=== PATIENT | female | born 1965 | race Caucasian/White ===

== ENCOUNTER → 2023-02-24 13:52 | Outpatient (REF) | payer OTHER, SELFPAY | LOC: WOUND 13:52 | PROVIDERS: ATTENDING PHYSICIAN Surgery; REFERRING PHYSICIAN Internal Medicine | DX: L97.822 Non-pressure chronic ulcer of other part of left lower leg with fat layer exposed (principal); L93.0 Discoid lupus erythematosus; M35.00 Sjogren syndrome, unspecified; Z79.52 Long term (current) use of systemic steroids; Z79.60 Long term (current) use of unspecified immunomodulators and immunosuppressants | CPT/HCPCS: 11042; 11043; 99214 ==

== ENCOUNTER → 2023-04-07 08:43 | Outpatient (REF) | payer OTHER, SELFPAY | LOC: WOUND 08:43 | PROVIDERS: ATTENDING PHYSICIAN Surgery; REFERRING PHYSICIAN Internal Medicine | DX: L97.822 Non-pressure chronic ulcer of other part of left lower leg with fat layer exposed (principal); S81.811S Laceration without foreign body, right lower leg, sequela; L03.115 Cellulitis of right lower limb; L93.0 Discoid lupus erythematosus; Z79.60 Long term (current) use of unspecified immunomodulators and immunosuppressants; Z79.52 Long term (current) use of systemic steroids; M35.00 Sjogren syndrome, unspecified; X58.XXXA Exposure to other specified factors, initial encounter | CPT/HCPCS: 11042; 11045; 99213 ==

== ENCOUNTER → 2023-05-04 13:24 | Outpatient (REF) | payer OTHER, SELFPAY | LOC: WOUND 13:24 | PROVIDERS: ATTENDING PHYSICIAN Surgery; REFERRING PHYSICIAN Internal Medicine | DX: L97.822 Non-pressure chronic ulcer of other part of left lower leg with fat layer exposed (principal); S81.811A Laceration without foreign body, right lower leg, initial encounter; L97.812 Non-pressure chronic ulcer of other part of right lower leg with fat layer exposed; L03.115 Cellulitis of right lower limb; L93.0 Discoid lupus erythematosus; Z79.60 Long term (current) use of unspecified immunomodulators and immunosuppressants; Z79.52 Long term (current) use of systemic steroids; M35.00 Sjogren syndrome, unspecified; X58.XXXA Exposure to other specified factors, initial encounter | CPT/HCPCS: 11042; 11045 ==

== ENCOUNTER 2023-12-30 13:40 | Emergency (ER) | payer OTHER, SELFPAY ==
[2023-12-30 13:45] VITALS: BP 142/74
[2023-12-30 14:14] LABS: % Basophils 0.5 % (0-2); % Immature Granulocytes 2.1 % (0-0.5); % Lymphocytes 3.3 % (20.5-51.1); % Monocytes 3.9 % (1.7-9.3); % Neutrophils 90.2 % (42.2-75.2); Absolute Basophils 0.1 10^3/uL (0-0.2); Absolute Immature Granulocytes 0.4 10^3/uL (0-0.05); Absolute Lymphocytes 0.6 10^3/uL (1.2-3.4); Absolute Monocytes 0.7 10^3/uL (0.1-0.6); Hematocrit 42.7 % (37.0-47.0); Hemoglobin 14.5 g/dL (12.0-16.0); Mean Corpuscular Hgb 28.7 pg (27.0-31.0); Mean Corpuscular Volume 84.6 fL (81.0-99.0); Mean Platelet Volume 8.5 fL (7.4-10.4); Nucleated Red Blood Cells % 0 %; Platelet Count 396 10^3/uL (130-400); Red Blood Cell Count 5.05 10^6/uL (4.20-5.40); Red Cell Dist. Width 17.4 % (11.5-14.5); White Blood Cell Count 16.7 10^3/uL (4.8-10.8)
[2023-12-30 14:29] LABS: ALT (SGPT) 30 U/L (0-35); AST (SGOT) 40 U/L (14-36); Albumin 4.3 g/dl (3.5-5.0); Alkaline Phosphatase 59 U/L (38-126); Blood Urea Nitrogen 39 mg/dl (7-17); Calcium 9.9 mg/dl (8.4-10.2); Carbon Dioxide 30 mmol/L (22-30); Chloride 90 mmol/L (98-107); Glucose 159 mg/dl (70-99); Potassium 3.8 mmol/L (3.5-5.1); Sodium 131 mmol/L (135-145); Total Bilirubin 0.6 mg/dl (0.2-1.3); Total Protein 6.6 g/dl (6.3-8.2); eGFR 53.13
--- NOTE | 2023-12-30 17:36 | ED.GENMED ---
History of Present Illness
General
Chief Complaint: Weakness
Source: patient
Exam Limitations: none
Time Seen by Provider: 12/30/23 17:17
Travel History
Have you had any contact with someone who has COVID-19?: No
Do you have any symptoms of coronavirus? Fever > 100 degrees, chills, cough, shortness of breath, sore throat, loss of taste or smell, muscle aches, or headache?: Yes
Symptoms:: cough
History of Present Illness
History of Present Illness:
58-year-old female presents complaining of persistent weakness and cough following a COVID diagnosis about 2-1/2 weeks ago. She states she was really fatigued at the onset of her COVID. Symptoms persisted. She states she is still testing positive
for COVID. She notes she has been on doxycycline for 4 days without improvement. She spoke with her cnc technician who recommended she come here for evaluation. She has a history of lupus and is on Plaquenil as well as 20 mg of prednisone daily.
Given that the doxycycline was not helping, the cnc technician prescribed Levaquin patient did not fill yet. She is been eating and drinking well. No chest pain. No shortness of breath. No urinary symptoms. No other complaints at this time
Past History
Past History
ED Past Medical History: Other (Lupus), Other (Fibromyalgia) and Other (Sj�gren syndrome)
ED Past Surgical History: Tonsilectomy and Other (Gastric bypass)
Social History
Tobacco: Non-smoker
Personal:
Living: with family
Phy Exam
Physical Exam
Physical Exam:
General: Well-appearing female nontoxic no acute respiratory distress
HEENT: Normocephalic atraumatic
Heart: Regular rate and rhythm no murmurs lungs: Clear no wheeze or rales
Abdomen soft nontender nondistended no guarding or rebound
Extremities: No cyanosis or edema
Skin: Warm no rash
Course
Orders/Labs/Results
Orders:
Orders
12/30/23 13:48
CXR2 [CR Chest - 2 Views ] Urgent
Comment:
Reason For Exam: cough positive for covid two wks ago
12/30/23 13:59
Complete Blood Count/With Diff Urgent
Comprehensive Metabolic Panel Urgent
Abnormal Lab Results
12/30/23
13:59
WBC 16.7 H 10^3/uL
(4.8-10.8)
RDW 17.4 H %
(11.5-14.5)
Abs Immat Gran (auto) 0.4 H 10^3/uL
(0-0.05)
Absolute Neuts (auto) 15.0 H 10^3/uL
(1.4-6.5)
Absolute Lymphs (auto) 0.6 L 10^3/uL
(1.2-3.4)
Absolute Monos (auto) 0.7 H 10^3/uL
(0.1-0.6)
Immature Gran % 2.1 H %
(0-0.5)
Neutrophils % 90.2 H %
(42.2-75.2)
Lymphocytes % 3.3 L %
(20.5-51.1)
Sodium 131 L mmol/L
(135-145)
Chloride 90 L mmol/L
(98-107)
BUN 39 H mg/dl
(7-17)
Creatinine 1.2 H mg/dL
(0.6-1.0)
Glucose 159 H mg/dl
(70-99)
AST 40 H U/L
(14-36)
12/30/23 13:59
12/30/23 13:59
Vital Signs
Initial and Last Documented VS:
Initial Vital Signs
Temp Pulse Resp BP Pulse Ox
98.5 F 83 16 142/74 98
12/30/23 13:45 12/30/23 13:45 12/30/23 13:45 12/30/23 13:45 12/30/23 13:45
Last Documented Vital Signs
Temp Pulse Resp BP Pulse Ox
98.5 F 83 16 142/74 98
12/30/23 13:45 12/30/23 13:45 12/30/23 13:45 12/30/23 13:45 12/30/23 13:45
MDM/Problems Addressed
Differential Diagnosis Includes:
Cough with persistent fatigue following COVID diagnosis. No chest pain or shortness of breath. She is not hypoxic. Do not suspect PE. There is no hemoptysis. Chest x-ray personally visualized and was done through triage which is negative. I
reviewed the lab work as well. She has leukocytosis with a white count of 16.7 however she is on prednisone. She has been on doxycycline without relief and Levaquin was recently called in for her. Her creatinine has bumped slightly at 1.2.
Suspect subtle dehydration and offered fluids however patient declined at this time. She really wanted to make sure she did not have pneumonia. X-ray was clear. She is comfortable going home with hydration and switching to her Levaquin as
prescribed already. I have no indication for admission otherwise.
*Critical Care Note
Total Time (30-74mins, 75-104mins- exclusive of procedures): Not Applicable
ED Attending Note
-
Portions of this chart may have been created with voice recognition software.� Occasional wrong word or��sound alike� substitutions may have occurred due to the inherent limitations of voice recognition software.
Discharge Plan
Departure
Patient Disposition: Home (Routine Discharge)
Date of Disposition: 12/30/23
Time of Disposition: 17:39
Patient with high blood pressure during this ER visit?: No
Discharge Problem:
URI (upper respiratory infection)
Instructions: Generalized Weakness (DC)
Prescriptions:
No Action
trazodone 50 MG tablet
50 mg PO HS
methotrexate sodium 2.5 MG tablet
7.5 mg PO SA
hydroxychloroquine 200 MG tablet
400 mg PO DAILY
zolpidem 10 MG tablet
10 mg PO HS
Acidophilus 1 CAP capsule
1 cap PO DAILY
furosemide 40 MG tablet
20 mg PO BID
spironolactone [Aldactone] 100 MG tablet
200 mg PO BID
folic acid 1 MG tablet
1 mg PO NOON
aripiprazole 2 MG tablet
2 mg PO DAILY
omega-3 fatty acids-fish oil 1 EACH capsule
1 ea PO DAILY
magnesium oxide 500 MG capsule
1,000 mg PO DAILY
DHEA 50 MG tablet
100 mg PO DAILY
Benlysta
1 dose IV MONTHLY
therapeutic multivitamin Tablet
1 tab PO DAILY
tramadol 50 mg Tablet
50 mg PO QIDPRN PRN (Reason: moderate pain)
prednisone 1 mg Tablet
15 mg PO DAILY
lamotrigine 100 mg Tablet
100 mg PO BID
omeprazole 20 mg Tablet,Delayed Release (Dr/Ec)
20 mg PO PRN PRN (Reason: gerd)
naltrexone 4.5 mg Capsule
4.5 mg PO HS
ergocalciferol (vitamin D2) [Vitamin D2] 1,250 mcg (50,000 unit) Capsule
1,250 mcg PO PHAN
cyclobenzaprine [Flexeril] 10 mg Tablet
10 mg PO TID PRN (Reason: hips spasms and lower back)
Patient Comments:
per patient last dose was months ago.
guaifenesin [Mucinex] 1,200 mg Tablet Extended Release 12hr
1 mg PO Q12 PRN (Reason: congestion)
Referrals:
Aracelis Frazier MD [Family Provider] -
Activity Restrictions/Additional Instructions:
You may switch to Levaquin from doxycycline. Stay hydrated. Please return for worsening symptoms otherwise follow-up with your treating physicians
Interventions
Interventions:
*ED COVID-19 Vaccine History Last Done: 12/30/23 13:45
Discharge Date and Time
Print Language: [id number]
[2023-12-30 17:44] VITALS: BP 140/83
== END 2023-12-30 17:46 | disposition home or self-care (01) ==
LOC: EMR 13:40
PROVIDERS: EMERGENCY PHYSICIAN Emergency Medicine; FAMILY PHYSICIAN Internal Medicine
DX: J06.9 Acute upper respiratory infection, unspecified (principal); U07.1 COVID-19; R53.1 Weakness; M32.9 Systemic lupus erythematosus, unspecified; M79.7 Fibromyalgia; Z79.899 Other long term (current) drug therapy; Z98.84 Bariatric surgery status; Z91.048 Other nonmedicinal substance allergy status
CPT/HCPCS: 99283; 71046; 80053; 85025

== ENCOUNTER → 2024-06-05 09:22 | Outpatient (REF) | payer OTHER, SELFPAY | LOC: WDC 09:22 | PROVIDERS: ATTENDING PHYSICIAN Hospitalist | DX: N63.10 Unspecified lump in the right breast, unspecified quadrant (principal) | CPT/HCPCS: 76642; 77062; 77066 ==

== ENCOUNTER 2024-11-03 06:21 | Day surgery (SDC) | payer OTHER, SELFPAY | END 2024-11-03 10:39 | disposition home or self-care (01) | LOC: GI 06:21 | PROVIDERS: ATTENDING PHYSICIAN Internal Medicine Gastroenterology | DX: Z12.11 Encounter for screening for malignant neoplasm of colon (principal); D12.2 Benign neoplasm of ascending colon; K57.30 Diverticulosis of large intestine without perforation or abscess without bleeding; Q43.8 Other specified congenital malformations of intestine; Z86.0100 Personal history of colon polyps, unspecified | CPT/HCPCS: 45380; 88305 ==

== ENCOUNTER 2025-02-26 09:29 | Outpatient (RCR) | payer OTHER, SELFPAY | END 2025-02-26 23:59 | disposition home or self-care (01) | LOC: RPT 09:29 | PROVIDERS: ATTENDING PHYSICIAN Internal Medicine Gastroenterology; FAMILY PHYSICIAN Hospitalist | DX: M62.89 Other specified disorders of muscle (principal); R39.15 Urgency of urination; N39.41 Urge incontinence; R15.1 Fecal smearing; Z73.6 Limitation of activities due to disability; R15.9 Full incontinence of feces; N94.12 Deep dyspareunia; M32.9 Systemic lupus erythematosus, unspecified; R26.89 Other abnormalities of gait and mobility | CPT/HCPCS: 97163; 97530 ==

== ENCOUNTER 2025-04-03 13:04 | Outpatient (RCR) | payer OTHER, SELFPAY | END 2025-04-03 23:59 | disposition home or self-care (01) | LOC: RPT 13:04 | PROVIDERS: ATTENDING PHYSICIAN Internal Medicine Gastroenterology; FAMILY PHYSICIAN Hospitalist | DX: M62.89 Other specified disorders of muscle (principal); R39.15 Urgency of urination; N39.41 Urge incontinence; R15.1 Fecal smearing; Z73.6 Limitation of activities due to disability; R15.9 Full incontinence of feces; N94.12 Deep dyspareunia; M32.9 Systemic lupus erythematosus, unspecified; R26.89 Other abnormalities of gait and mobility | CPT/HCPCS: 97014; 97112; 97140; 97530 ==

== ENCOUNTER 2025-05-07 14:10 | Outpatient (RCR) | payer OTHER, SELFPAY | END 2025-05-07 23:59 | disposition home or self-care (01) | LOC: RPT 14:10 | PROVIDERS: ATTENDING PHYSICIAN Internal Medicine Gastroenterology; FAMILY PHYSICIAN Hospitalist | DX: M62.89 Other specified disorders of muscle (principal); R39.15 Urgency of urination; N39.41 Urge incontinence; R15.1 Fecal smearing; Z73.6 Limitation of activities due to disability; R15.9 Full incontinence of feces; N94.12 Deep dyspareunia; M32.9 Systemic lupus erythematosus, unspecified; R26.89 Other abnormalities of gait and mobility | CPT/HCPCS: 97014; 97112; 97140; 97530 ==

== ENCOUNTER 2025-06-08 08:36 | Outpatient (RCR) | payer OTHER, SELFPAY | END 2025-06-08 23:59 | disposition home or self-care (01) | LOC: RPT 08:36 | PROVIDERS: ATTENDING PHYSICIAN Internal Medicine Gastroenterology; FAMILY PHYSICIAN Hospitalist | DX: M62.89 Other specified disorders of muscle (principal); R39.15 Urgency of urination; N39.41 Urge incontinence; R15.1 Fecal smearing; N94.12 Deep dyspareunia; Z73.6 Limitation of activities due to disability; M32.9 Systemic lupus erythematosus, unspecified; R15.9 Full incontinence of feces; R26.89 Other abnormalities of gait and mobility | CPT/HCPCS: 97014; 97110; 97112; 97140; 97530 ==

== ENCOUNTER 2025-06-14 13:13 | Outpatient (RCR) | payer OTHER, SELFPAY | END 2025-06-14 23:59 | disposition home or self-care (01) | LOC: RPT 13:13 | PROVIDERS: ATTENDING PHYSICIAN Internal Medicine Gastroenterology; FAMILY PHYSICIAN Hospitalist | DX: N39.41 Urge incontinence (principal); R15.1 Fecal smearing; Z73.6 Limitation of activities due to disability; R15.9 Full incontinence of feces; N94.12 Deep dyspareunia; M32.9 Systemic lupus erythematosus, unspecified; R26.89 Other abnormalities of gait and mobility; M62.89 Other specified disorders of muscle; R39.15 Urgency of urination | CPT/HCPCS: 97014; 97110; 97112; 97530 ==

== ENCOUNTER 2025-08-08 12:37 | Outpatient (RCR) | payer OTHER, SELFPAY | END 2025-08-08 23:59 | disposition home or self-care (01) | LOC: RPT 12:37 | PROVIDERS: ATTENDING PHYSICIAN Internal Medicine Gastroenterology; FAMILY PHYSICIAN Hospitalist | DX: N39.41 Urge incontinence (principal); R15.1 Fecal smearing; Z73.6 Limitation of activities due to disability; R15.9 Full incontinence of feces; N94.12 Deep dyspareunia; M32.9 Systemic lupus erythematosus, unspecified; R26.89 Other abnormalities of gait and mobility; M62.89 Other specified disorders of muscle; R39.15 Urgency of urination | CPT/HCPCS: 97014; 97112; 97140; 97530 ==